=== PATIENT | female | born 1950 | race Hispanic/Latino ===

== ENCOUNTER 2024-01-21 08:40 | Observation (INO) | payer OTHER ==
[2024-01-18 10:38] LABS: HEMATOCRIT 41.4 % (36-48); MEAN CORPUSCULAR HEMOGLOBIN 35.1 pg (27.0-33.0); MEAN CORPUSCULAR HGB CONC 31.9 g/dL (32.0-36.0); MEAN CORPUSCULAR VOLUME 110.1 fL (79-99); PLATELET COUNT (AUTO) 89 K/uL (130-400); RED BLOOD CELL COUNT(AUTO) 3.76 MIL/uL (4.00-5.50); RED CELL DISTRIBUTION WIDTH 13.7 % (11.0-15.5); WHITE BLOOD COUNT (AUTO) 4.3 K/uL (4.8-10.8)
[2024-01-18 10:42] VITALS: BP 165/93; PULSE 74; RESP 18
[2024-01-18 10:48] LABS: INR 0.96 (0.85-1.15); PROTHROMBIN TIME 11.4 SEC (9.6-11.6)
[2024-01-18 10:49] LABS: PARTIAL THROMBOPLASTIN TIME 29.3 SEC (26.3-35.5)
[2024-01-18 10:50] LABS: CREATININE 5.1 mg/dL (0.5-1.0); POTASSIUM 3.8 mmol/L (3.5-5.1)
[2024-01-21] VITALS (27 sets, daily range): BP systolic 132–172; BP diastolic 60–92; PULSE 58–79; RESP 13–18; O2SAT 97
[~2024-01-21] VITALS: Ht 157.5 cm; Wt 61.9 kg
[~2024-01-21 08:40] MED LIST: AMLO-258 PO; FERR210T PO
[2024-01-21] MEDS: CEFAZOLIN SODIUM 2 GM VIAL ONE (09:45)
[2024-01-21] MEDS: 0.9% NACL 500ML IV.SOLN 500 ML IV ONE (09:46)
[2024-01-21] MEDS: FAMOTIDINE 20MG VIAL IV ONE (10:27)
[2024-01-21] MEDS: ACETAMINOPHEN 1,000 MG/100 ML VIAL IV ONE (10:27)
[2024-01-21] MEDS ORDERED: PROPOFOL 10 MG/ML 20ML VIAL IV ONE (10:28)
[2024-01-21] MEDS ORDERED: ROCURONIUM BROMIDE 10MG/1ML 5ML VL ONE (10:28)
[2024-01-21] MEDS ORDERED: LIDOCAINE PF 100MG/5ML (2%) SYRINGE 5ML ONE (10:28)
[2024-01-21] MEDS ORDERED: FENTANYL CITRATE PF 50 MCG/1 ML 2ML VIAL ONE (10:28)
[2024-01-21 10:44] LABS: CREATININE 7.4 mg/dL (0.5-1.0); POTASSIUM 4.2 mmol/L (3.5-5.1)
[2024-01-21] MEDS ORDERED: ONDANSETRON 4MG INJ ONE (10:44)
[2024-01-21] MEDS ORDERED: DEXAMETHASONE SOD PHOSPHATE 4 MG/ML 1ML VIAL ONE (10:44)
[2024-01-21] MEDS: CEFAZOLIN SODIUM 2 GM VIAL IVPB ONE ×2 (10:45)
[2024-01-21] MEDS ORDERED: LIDOCAINE HCL 1% 20 ML VIAL ONE (10:50)
[2024-01-21] MEDS ORDERED: BUPIVACAINE/PF 0.5% 30ML VIAL ONE (10:51)
[2024-01-21] MEDS ORDERED: PHENYLEPHRINE HCL 10 MG/ML 1ML VIAL IV ONE (11:33)
[2024-01-21] MEDS ORDERED: NEOSTIGMINE METHYLSULFATE 1MG/ML IV ONE (12:13)
[2024-01-21] MEDS ORDERED: GLYCOPYRROLATE 0.2 MG/ML 5 ML VIAL ONE (12:13)
[2024-01-21] MEDS: HYDRALAZINE 20MG/ML VIAL ONE (13:28)
[2024-01-21] MEDS: FERRIC CITRATE 420 MG PO SCH (17:00)
[2024-01-21] MEDS ORDERED: ONDANSETRON 4MG INJ IVP PRN (21:30)
[2024-01-21] MEDS ORDERED: TEMAZEPAM 15 MG CAPSULE PO PRN (21:30)
[2024-01-21] MEDS ORDERED: ACETAMINOPHEN 325 MG TAB PO PRN (21:30)
[2024-01-21] MEDS ORDERED: ALBUTEROL 0.083% 2.5 MG/3 ML INH IH PRN (21:30)
[2024-01-21] MEDS ORDERED: ACETAMINOPHEN 650 MG SUPPOSITORY RC PRN (21:30)
[2024-01-21] MEDS ORDERED: IPRATROPIUM 0.5 MG/2.5 ML INH IH PRN (21:30)
[2024-01-21] MEDS ORDERED: LACTULOSE 20 GM/30 ML UDCUP PO PRN (21:30)
[2024-01-21] MEDS ORDERED: DOCUSATE SODIUM 100 MG CAP PO PRN (21:30)
[2024-01-22] VITALS (27 sets, daily range): BP systolic 138–178; BP diastolic 75–108; PULSE 52–82; RESP 16–20; TEMP 97.7–97.8; O2SAT 95
[2024-01-22] MEDS: INSULIN HUMULIN R 100 UNIT/ML 3ML SQ SCH (05:27)
[2024-01-22] MEDS: HYDRALAZINE 20MG/ML VIAL IV PRN (05:28)
[2024-01-22 06:21] LABS: BASOPHILS # (AUTO) 0.01 K/uL (0.00-0.20); BASOPHILS % (AUTO) 0.3 % (0.0-5.0); HEMATOCRIT 36.3 % (36-48); IMMATURE GRANULOCYTE ABSOLUTE 0.01 K/uL (0-1); LYMPHOCYTES # (AUTO) 1.1 K/uL (1.0-4.8); LYMPHOCYTES % (AUTO) 28.9 % (21.0-51.0); MEAN CORPUSCULAR HEMOGLOBIN 35.5 pg (27.0-33.0); MEAN CORPUSCULAR HGB CONC 32.2 g/dL (32.0-36.0); MONOCYTES # (AUTO) 0.3 K/uL (0.1-1.0); MONOCYTES % (AUTO) 7.4 % (3.0-13.0); NEUTROPHILS # (AUTO) 2.5 K/uL (1.8-7.7); NEUTROPHILS % (AUTO) 63.1 % (40.0-77.0); PLATELET COUNT (AUTO) 96 K/uL (130-400); RED CELL DISTRIBUTION WIDTH 14.2 % (11.0-15.5); WHITE BLOOD COUNT (AUTO) 3.9 K/uL (4.8-10.8)
[2024-01-22 06:33] LABS: ALBUMIN 2.1 g/dL (3.5-5.0); ASPARTATE AMINOTRANSFERASE 15 U/L (10-37); BILIRUBIN,TOTAL 0.4 mg/dL (0.2-1.0); CARBON DIOXIDE 27 mmol/L (21-32); CHLORIDE 102 mmol/L (101-111); GLOMERULAR FILTR. RATE CALC 4 mL/min (>90); GLUCOSE,RANDOM 85 mg/dL (70-105); PHOSPHORUS 6.2 mg/dL (2.5-4.9); POTASSIUM 4.3 mmol/L (3.5-5.1); SODIUM SERUM 141 mmol/L (136-145); UREA NITROGEN, BLOOD 62 mg/dL (7-18)
[2024-01-22 06:35] LABS: ALANINE AMINOTRANSFERASE < 6 U/L (12-78)
[2024-01-22 06:36] LABS: CREATININE 8.7 mg/dL (0.5-1.0)
[2024-01-22] MEDS: PANTOPRAZOLE 40 MG TAB DR PO SCH (09:00)
[2024-01-22] MEDS: AMLODIPINE 5 MG TAB PO SCH (09:00)
[2024-01-22] MEDS ORDERED: HEPARIN 1,000 UNIT VIAL ONE (10:04)
[2024-01-22] MEDS ORDERED: LIDOCAINE HCL 400MG/20ML VIAL ONE (10:04)
== END 2024-01-22 20:25 | disposition home or self-care (01) ==
LOC: DAH 08:40 → DAHIP 08:41 → 4DH 16:20
PROVIDERS: ADMIT Thoracic Surgery (Cardiothoracic Vascular Surgery); ATTEND Thoracic Surgery (Cardiothoracic Vascular Surgery)
DX: T82.510A Breakdown (mechanical) of surgically created arteriovenous fistula, initial encounter (principal); I12.0 Hypertensive chronic kidney disease with stage 5 chronic kidney disease or end stage renal disease; N18.6 End stage renal disease; D63.1 Anemia in chronic kidney disease; E46 Unspecified protein-calorie malnutrition; I73.9 Peripheral vascular disease, unspecified; E78.00 Pure hypercholesterolemia, unspecified; E78.5 Hyperlipidemia, unspecified; J44.9 Chronic obstructive pulmonary disease, unspecified; Z99.2 Dependence on renal dialysis; Z79.899 Other long term (current) drug therapy
CPT/HCPCS: 80048 ×2; 85027; 85610; 85730; 86850; 86900; 86901; 36415 ×3; 71045; 93005; 36832; 87070; 87076; 87205; 88304; 94664; 77001; 96374; 83735; 84100; 80053; 85025; 82948 ×2; 90935; A6260; G0378 ×25; A4663; A6207; J7030; A4452; J7040; J3490 ×4; J3010; J0690 ×3; J2001; J0360 ×2; J2704; J2405; J2710; J0665 ×2; J1100; J1644 ×3; J2371; A6446; G0168; A4649 ×2; C1713 ×2; A4930; A4215; A4223; A4222; A4221; C1750; C1894; 36558; G0257